=== PATIENT | male | born 1975 | race Caucasian/White ===

== ENCOUNTER 2019-12-02 21:34 | Observation (INO) ==
--- NOTE | 2019-12-02 21:50 | ERNOTE ---
Abdominal HPI - General Chief Complaint: Abdominal Pain Time Seen by Provider: 12/02/19 21:48 Source: patient Exam Limitations: no limitations - Immun/Allergies/Home Medications Immunizatons: IMMUNIZATION HX Immunizations Up to Date Yes History of Influenza Vaccine Yes Hx Pneumococcal Vaccination No Allergies/Adverse Reactions: Allergies amoxicillin Allergy (Verified 11/24/19 20:11) per care facility data codeine Allergy (Verified 11/24/19 20:11) per care facility data latex Allergy (Verified 11/24/19 20:11) per care facility data Penicillins Allergy (Verified 11/24/19 20:11) per care facility data sulfamethoxazole [From Bactrim] Allergy (Verified 11/24/19 20:11) per care facility data trimethoprim [From Bactrim] Allergy (Verified 11/24/19 20:11) per care facility data Home Medications: HOME MEDICATIONS Acetaminophen [Tylenol] 1,000 mg PEG TID 11/14/19 [Last Taken 11/24/19 17:00] Albuterol Sulfate [Albuterol Sulfate 0.63 MG/3ML] 0.63 mg INHALATION BID 11/14/19 [Last Taken Unknown] Budesonide [Pulmicort Respules] 2 ml INHALATION BID 11/14/19 [Last Taken Unknown] Calcium Carbonate/Vitamin D3 [Sm Calcium 500-Vit D3 400 Tab] 1 ea PEG BID 11/14/19 [Last Taken Unknown] Glycopyrrolate 1.5 mg PEG BID 11/14/19 [Last Taken Unknown] Lactose-Reduced Food/Fiber [Jevity 1.5 Sudhakar Liquid] 11/14/19 [Last Taken Unknown] Melatonin 3 mg PEG HS 11/14/19 [Last Taken Unknown] Metoprolol Tartrate [Lopressor] 25 mg PEG BID 11/14/19 [Last Taken Unknown] Miconazole Nitrate 1 appl TOPICAL BID 11/14/19 [Last Taken Unknown] Polyethylene Glycol 3350 [Gavilax] 17 gm PEG DAILY 11/14/19 [Last Taken Unknown] Potassium Bicarbonate/Cit AC [Effer-K 20 Meq Tablet Eff] 60 meq PEG TID 11/14/19 [Last Taken Unknown] Protonix 40 mg PEG DAILY 11/14/19 [Last Taken Unknown] Spironolactone 50 mg PEG DAILY 11/14/19 [Last Taken Unknown] Ziprasidone HCl [Geodon] 20 mg PEG BID 11/14/19 [Last Taken Unknown] - History of Present Illness Narrative: Patient has had recurrent abdominal pain over the past couple of weeks. He has had 2 CAT scans. Initially his PEG tube was partially displaced that was reinserted and was normal and within the stomach on the second CAT scan 10 days later. Today he states he has diffuse abdominal pain mostly in the periumbilical level bilaterally and in the back. He denies any change in bowel habits he denies any diarrhea or constipation. He denies any urinary symptoms. Timing: intermittent Quality: moderate, aching Activities at Onset: none Associated Symptoms: Present: denies symptoms Prior Treatment: Present: recently seen, treated by physician Review of Systems - Review of Systems Constitutional: Absent: recent illness, fever, chills ENT: Absent: nose congestion, nasal drainage Respiratory: Present: cough Cardiology: Absent: chest pain Gastrointestinal/Abdominal: Present: See HPI, abdominal pain. Absent: nausea, vomiting, diarrhea, constipation Genitourinary: Absent: frequency, dysuria Neurological: Absent: headache Endocrine: Absent: excessive sweating Medical History (Last Reviewed 12/03/19 @ 05:20 by Iván Farah DO) Chronic pulmonary aspiration Feeding difficulties Feeding difficulty in adult Hidradenitis suppurativa Hypertension, essential Immune thrombocytopenic purpura Myotonic muscular dystrophy Pain around PEG tube site Presence of externally removable percutaneous endoscopic gastrostomy (PEG) tube Respiratory failure with hypercapnia Schizoaffective disorder, bipolar type Suicidal ideations Tachycardia Tracheostomy in place Ventilator dependence Surgical History: Surgical History (Last Reviewed 12/03/19 @ 05:20 by Iván Farah DO) H/O tracheostomy S/P percutaneous endoscopic gastrostomy (PEG) tube placement Family History: Family History (Last Reviewed 12/03/19 @ 05:20 by Iván Farah DO) Other No pertinent family history Social History: (Last Reviewed 12/03/19 @ 05:20 by Iván Farah DO) Social History: custodial: Yes custodial comment: [facility] Marital status: Single lives independently: No current occupational status: disabled Physical Exam - Physical Exam General Appearance: Present: wd/wn, alert, no apparent distress Head Exam: Present: normal inspection, no evidence of injury Ears, Nose, Throat: Present: dry mucous membranes Neck: Present: nontender Respiratory: Present: chest nontender, lungs clear, other - Tracheostomy site in good condition. Cardiovascular/Chest: Present: regular rate, rhythm, no murmur Gastrointestinal/Abdominal: Present: normal bowel sounds, nondistended, soft, tenderness - Diffuse. Absent: guarding, rebound Back Exam: Present: CVA tenderness (R), CVA tenderness (L) Extremity Exam: Present: normal inspection, no edema Neurological Exam: Present: alert, normal mood/affect Skin Exam: Present: skin rash - Below his abdominal fold. Progress - Results and Orders Patient's Lab Results:: I have reviewed the patient's lab results. Results and Orders: Laboratory Tests 12/02/19 12/02/19 12/03/19 22:13 22:13 04:24 WBC 5.3 Hgb 12.4 L Hct 38.8 L Plt Count 119 L Sodium 141 Potassium 5.0 H Chloride 104 Carbon Dioxide 29.6 BUN 28 H Creatinine 0.95 Random Glucose 102 Calcium 9.6 Total Bilirubin 0.5 AST 18 ALT 35 Alkaline Phosphatase 124 Albumin 3.2 L Amylase 28 Lipase 142 Urine Color Yellow Urine Appearance Clear Urine pH 7.5 Ur Specific [place] <=1.005 Urine Protein Negative Urine Glucose (UA) Negative Urine Ketones Negative Urine Blood Negative Urine Nitrate Negative Urine Bilirubin Negative Urine Urobilinogen Normal Ur Leukocyte Esterase Negative Urine RBC None seen Urine WBC None seen Ur Epithelial Cells 0-5 Urine Bacteria Trace Urine Culture Comments No culture indicated - Vital Signs Patient's Vital Signs:: I have reviewed the patient's vital signs. Vital Signs: Vital Signs 12/02/19 21:36 Temperature 36.3 C Pulse Rate 65 Respiratory Rate 12 Blood Pressure 114/67 O2 Sat by Pulse Oximetry 97 - X-Ray X-Ray #1 X-Ray: abdomen Interpretation: Interp. by me X-ray Comments: Patient has some mild air-fluid levels. No free air. There are some mildly dilated loops of bowel. - CT/Ultrasound CT/Ultrasound Narrative: CT abdomen/pelvis with oral and IV contrast: 8.5 mm dilated appendix could represent early appendicitis. - Progress/Reassessment Chief Complaint: Abdominal Pain Progress:: Improved Progress Note-Subjective: 12/03/19 04:[address] Gross she agrees with observation admission and a dose of Zosyn 12/03/19 04:19 Upon review of the patient's allergies he is allergic to penicillins so antibiotic was changed to Cipro and Flagyl Departure Clinical Impression: Abnormal CT of the abdomen Abdominal pain Qualifiers: Abdominal location: lower abdomen, unspecified Qualified Code(s): R10.30 - Lower abdominal pain, unspecified - Departure Disposition: Still a patient Condition: Good
[2019-12-02 22:16] LABS: Hematocrit 38.8 % (42.0-52.0); Hemoglobin 12.4 gm/dL (13.5-18.0); Mean Cell Volume 98.5 fl (78-100); Mean Corpuscular Hemoglobin 31.5 pg (27-31); Mean Platelet Volume 10.8 fl (8-11.3); Neutrophil # 3.6 K/mm3 (1.3-6.0); Neutrophil % 66.7 % (42-75.0); Platelet Count 119 K/mm3 (150-450); Red Blood Count 3.94 M/mm3 (4.7-6.0); Red Cell Distribution Width 15.1 % (11.5-14.0); White Blood Count 5.3 K/mm3 (4.0-10.5)
[2019-12-02 22:31] LABS: Albumin * 3.2 gm/dl (3.4-5.0); Anion Gap 12.4 mmol/L (6.8-13.8); BUN/Creatinine Ratio 29.5 (9.0-21.6); Bilirubin, Total 0.5 mg/dL (0.0-1.1); Ca. Corrected For Albumin 9.9 mg/dL (8.4-10.2); Calcium * 9.6 mg/dL (7.9-10.9); Carbon Dioxide 29.6 mmol/L (24-32.6); Total Protein 8.1 gm/dL (6.2-8.2)
[2019-12-02] MEDS ORDERED: DIATRIZOATE MEGLUMINE, SODIUM 30 ML BTL PO ONE (22:58)
[2019-12-02] MEDS ORDERED: KETOROLAC TROMETHAMINE 30 MG/ML VIAL IV ONE (23:23)
[2019-12-03] MEDS ORDERED: NORMAL SALINE 1,000 ML IV ONE (03:59)
[2019-12-03 04:30] LABS: Urine Bilirubin Negative (NEGATIVE); Urine Blood Negative /ul (NEGATIVE); Urine Ketone Negative (NEGATIVE); Urine Nitrite Negative (NEGATIVE); Urine Protein Negative (NEGATIVE); Urine Specific Gravity <=1.005 SP.GR. (1.005-1.030); Urine Urobilinogen Normal (NORMAL); Urine pH 7.5 pH (5.0-7.0)
[2019-12-03] MEDS ORDERED: metroNIDAZOLE/SODIUM CHLORIDE 500 MG/100 ML BAG IV SCH (04:30)
[2019-12-03] MEDS ORDERED: CIPROFLOXACIN IN 5 % DEXTROSE 400 MG/200 ML BAG IV SCH (04:30)
[2019-12-03 04:37] LABS: Urine Appearance Clear (CLEAR); Urine Bacteria TRACE; Urine Color Yellow; Urine RBC None Seen /hpf (0-5); Urine WBC None Seen /hpf (0-5)
[2019-12-03] MEDS ORDERED: SENNOSIDES 8.6 MG TABLET PO PRN (08:05)
[2019-12-03] MEDS ORDERED: [UNRECOGNIZED DRUG - OTHER] PEG SCH (08:15)
[2019-12-03] MEDS ORDERED: ENTERAL NUTRITION FORMULA PEG SCH (08:15)
[2019-12-03] MEDS ORDERED: MAGNESIUM CITRATE 300 ML BTL PEG ONE (08:40)
[2019-12-03] MEDS ORDERED: GLYCOPYRROLATE PEG SCH (09:00)
[2019-12-03] MEDS ORDERED: SPIRONOLACTONE 25 MG TABLET PEG SCH (09:00)
[2019-12-03] MEDS: traMADol HCL 50 MG TABLET PO PRN (09:40)
[2019-12-03] MEDS: PANTOPRAZOLE SODIUM 40 MG TABLET.EC PEG SCH (09:41)
[2019-12-03] MEDS: METOPROLOL TARTRATE 25 MG TABLET PEG SCH ×2 (09:41→20:40)
[2019-12-03] MEDS: MICONAZOLE NITRATE 30 APPL TUBE TP SCH ×2 (09:41→20:41)
[2019-12-03] MEDS: ZIPRASIDONE HCL 20 MG CAPSULE PEG SCH ×2 (09:41→20:40)
[2019-12-03] MEDS: CALCIUM CARBONATE/VITAMIN D3 1 TAB TABLET PEG SCH ×2 (09:41→20:40)
[2019-12-03] MEDS: POLYETHYLENE GLYCOL 3350 17 GM PACKET PO SCH (09:41)
[2019-12-03] MEDS: ACETAMINOPHEN 500 MG TABLET PEG SCH ×3 (09:42→16:56)
[2019-12-03] MEDS: ALBUTEROL SULFATE 2.5 MG/0.5 ML VIAL.NEB IH SCH ×3 (09:44→19:54)
[2019-12-03] MEDS: BUDESONIDE 0.25 MG/2 ML VIAL.NEB IH SCH ×2 (09:46→19:54)
--- NOTE | 2019-12-03 11:51 | HP ---
Chief Complaint - Chief Complaint Date of Service: 12/03/19 Time of Service: 11:44 Chief Complaint: abd pain History of Present Illness: Italo is a pleasant 44-year-old gentleman who was admitted through the emergency room last night. I was told that the CT scan said he had an early appendicitis. Upon reviewing the CT scan I do not see an early appendicitis and the report does not mention acute appendicitis. He has been having lower abdominal pain for the last 3 weeks. He has tube feedings. He has been tolerating these normally. He has mild nausea which is normal with his tube feedings. He has not had vomiting. He states his bowels are working normally and he has been going 1-2 times a day. His last bowel movement was this morning. The pain is across the lower portion of the abdomen. He does not have a primary care provid er. He states it has been a long time since he has seen a primary care provider. Medical History (Last Reviewed 12/03/19 @ 05:20 by Iván Farah DO) Chronic pulmonary aspiration Feeding difficulties Feeding difficulty in adult Hidradenitis suppurativa Hypertension, essential Immune thrombocytopenic purpura Myotonic muscular dystrophy Pain around PEG tube site Presence of externally removable percutaneous endoscopic gastrostomy (PEG) tube Respiratory failure with hypercapnia Schizoaffective disorder, bipolar type Suicidal ideations Tachycardia Tracheostomy in place Ventilator dependence Surgical History: Surgical History (Last Reviewed 12/03/19 @ 05:20 by Iván Farah DO) H/O tracheostomy S/P percutaneous endoscopic gastrostomy (PEG) tube placement Family History: Family History (Last Reviewed 12/03/19 @ 05:20 by Iván Farah DO) Other No pertinent family history Social History: (Last Reviewed 12/03/19 @ 05:20 by Iván Farah DO) Social History: detention: Yes detention comment: [facility] Marital status: Single lives independently: No current occupational status: disabled Review Of Systems (GEN) - Review of Systems Generalized/Overall Review: Present: Weakness EENTM: Present: No Symptoms Reported Respiratory: Present: No Symptoms Reported Cardiac: Present: No Symptoms Reported Abdominal: Present: Abdominal Pain Genitourinary: Present: No Symptoms Reported Musculoskeletal: Present: Other - Muscular dystrophy Neurological: Present: Other - Muscular dystrophy Endocrine: Present: No Symptoms Reported Immunizations: IMMUNIZATION HX Immunizations Up to Date Yes History of Influenza Vaccine Yes Hx Pneumococcal Vaccination No Allergies/Adverse Reactions: Allergies Allergy/AdvReac Type Severity Reaction Status Date / Time amoxicillin Allergy Verified 11/24/19 20:11 codeine Allergy Hives Verified 12/03/19 08:48 latex Allergy Verified 11/24/19 20:11 Penicillins Allergy Verified 11/24/19 20:11 sulfamethoxazole Allergy Verified 11/24/19 20:11 [From Bactrim] trimethoprim [From Bactrim] Allergy Verified 11/24/19 20:11 Home Medications: HOME MEDICATIONS Acetaminophen [Tylenol] 1,000 mg PEG TID 11/14/19 [Last Taken 11/24/19 17:00] Albuterol Sulfate [Albuterol Sulfate 0.63 MG/3ML] 0.63 mg INHALATION BID 11/14/19 [Last Taken Unknown] Budesonide [Pulmicort Respules] 2 ml INHALATION BID 11/14/19 [Last Taken Unknown] Calcium Carbonate/Vitamin D3 [Sm Calcium 500-Vit D3 400 Tab] 1 ea PEG BID 11/14/19 [Last Taken Unknown] Glycopyrrolate 1.5 mg PEG BID 11/14/19 [Last Taken Unknown] Lactose-Reduced Food/Fiber [Jevity 1.5 Sudhakar Liquid] 11/14/19 [Last Taken Unknown] Melatonin 3 mg PEG HS 11/14/19 [Last Taken Unknown] Metoprolol Tartrate [Lopressor] 25 mg PEG BID 11/14/19 [Last Taken Unknown] Miconazole Nitrate 1 appl TOPICAL BID 11/14/19 [Last Taken Unknown] Polyethylene Glycol 3350 [Gavilax] 17 gm PEG DAILY 11/14/19 [Last Taken Unknown] Potassium Bicarbonate/Cit AC [Effer-K 20 Meq Tablet Eff] 60 meq PEG TID 11/14/19 [Last Taken Unknown] Protonix 40 mg PEG DAILY 11/14/19 [Last Taken Unknown] Spironolactone 50 mg PEG DAILY 11/14/19 [Last Taken Unknown] Ziprasidone HCl [Geodon] 20 mg PEG BID 11/14/19 [Last Taken Unknown] Sennosides [Senna] 8.6 mg PO DAILY PRN 12/03/19 [Last Taken Unknown] traMADol HCL [Tramadol HCl] 50 mg PO Q6H PRN 12/03/19 [Last Taken Unknown] Exam - Exam Vital Signs: Vital Signs - Last Taken Temp 36.4 C 12/03/19 10:50 Pulse 83 12/03/19 10:50 Resp 17 12/03/19 10:50 BP 115/72 12/03/19 10:50 Pulse Ox 98 12/03/19 10:50 Constitutional: Present: Alert, Oriented x3, Cooperative ENT Exam: Present: hearing grossly normal Eye Exam: bilateral eye: normal inspection Neck: Present: other - Trach in place Breasts: Present: Exam deferred Respiratory: Present: crackles Cardiovascular/Chest: Present: regular rate, rhythm Abdomen: Present: soft, nondistended, tender - Mild tenderness to palpation in the lower abdomen /Rectal: Present: Exam deferred Extremity: Present: other - Muscular dystrophy Skin Exam: Present: normal color Neurologic: Present: normal mood/affect Appearance: Present: appropriate appearance Eye contact: Present: cooperative, good eye contact Thoughts: Present: normal thought pattern Diagnostic Studies: Abnormal Lab Results 12/02/19 12/02/19 Range/Units 22:13 22:13 RBC 3.94 L (4.7-6.0) M/mm3 Hgb 12.4 L (13.5-18.0) gm/dL Hct 38.8 L (42.0-52.0) % MCH 31.5 H (27-31) pg RDW 15.1 H (11.5-14.0) % Plt Count 119 L (150-450) K/mm3 Monocytes % 10.4 H (0.0-9) % Lymphocytes # 1.07 L (1.5-3.5) k/mm3 Potassium 5.0 H (3.4-4.6) mmol/L BUN 28 H (6-23) mg/dL BUN/Creatinine Ratio 29.5 H (9.0-21.6) Albumin 3.2 L (3.4-5.0) gm/dl Laboratory Results WBC 5.3 K/mm3 (4.0-10.5) 12/02/19 22:13 RBC 3.94 M/mm3 (4.7-6.0) L 12/02/19 22:13 Hgb 12.4 gm/dL (13.5-18.0) L 12/02/19 22:13 Hct 38.8 % (42.0-52.0) L 12/02/19 22:13 MCV 98.5 fl (78-100) 12/02/19 22:13 MCH 31.5 pg (27-31) H 12/02/19 22:13 MCHC 32.0 g/dl (32-36) 12/02/19 22:13 RDW 15.1 % (11.5-14.0) H 12/02/19 22:13 Plt Count 119 K/mm3 (150-450) L 12/02/19 22:13 MPV 10.8 fl (8-11.3) 12/02/19 22:13 Immature Gran % (Auto) 0.20 % (0.001-0.429) 12/02/19 22:13 Immature Gran # (Auto) 0.01 K/mm3 (0.000-0.0310) 12/02/19 22:13 Neutrophils % 66.7 % (42-75.0) 12/02/19 22:13 Lymphocytes % 20.2 % (20-51) 12/02/19 22:13 Monocytes % 10.4 % (0.0-9) H 12/02/19 22:13 Eosinophils % 2.3 % (0.0-3.0) 12/02/19 22:13 Basophils % 0.2 % (0.0-1.0) 12/02/19 22:13 Nucleated RBC % 0.0 k/mm3 (0-1) 12/02/19 22:13 Neutrophils # 3.6 K/mm3 (1.3-6.0) 12/02/19 22:13 Lymphocytes # 1.07 k/mm3 (1.5-3.5) L 12/02/19 22:13 Monocytes # 0.6 k/mm3 (0.0-1.0) 12/02/19 22:13 Eosinophils # 0.1 k/mm3 (0.0-0.7) 12/02/19 22:13 Absolute Basophils 0.0 k/mm3 (0.0-0.1) 12/02/19 22:13 Sodium 141 mmol/L (132-142) 12/02/19 22:13 Plasma Sodium 141 mmol/L (130-142) 12/02/19 22:13 Potassium 5.0 mmol/L (3.4-4.6) H 12/02/19 22:13 Chloride 104 mmol/L (97-106) 12/02/19 22:13 Carbon Dioxide 29.6 mmol/L (24-32.6) 12/02/19 22:13 Anion Gap 12.4 mmol/L (6.8-13.8) 12/02/19 22:13 BUN 28 mg/dL (6-23) H 12/02/19 22:13 Creatinine 0.95 mg/dL (0.4-1.4) 12/02/19 22:13 Est GFR (Non-Af Amer) 91 mL/min (60-130) 12/02/19 22:13 BUN/Creatinine Ratio 29.5 (9.0-21.6) H 12/02/19 22:13 Random Glucose 102 mg/dL (70-110) 12/02/19 22:13 Calcium 9.6 mg/dL (7.9-10.9) 12/02/19 22:13 Calcium Adj for Albumin 9.9 mg/dL (8.4-10.2) 12/02/19 22:13 Total Bilirubin 0.5 mg/dL (0.0-1.1) 12/02/19 22:13 AST 18 U/L (0-48) 12/02/19 22:13 ALT 35 U/L (19-67) 12/02/19 22:13 Alkaline Phosphatase 124 U/L (50-170) 12/02/19 22:13 Total Protein 8.1 gm/dL (6.2-8.2) 12/02/19 22:13 Albumin 3.2 gm/dl (3.4-5.0) L 12/02/19 22:13 Amylase 28 U/L (25-115) 12/02/19 22:13 Lipase 142 U/L (73-393) 12/02/19 22:13 Urine Color Yellow 12/03/19 04:24 Urine Appearance Clear (CLEAR) 12/03/19 04:24 Urine pH 7.5 pH (5.0-7.0) 12/03/19 04:24 Ur Specific [place] <=1.005 SP.GR. (1.005-1.030) 12/03/19 04:24 Urine Protein Negative mg/dL (NEGATIVE) 12/03/19 04:24 Urine Glucose (UA) Negative mg/dL (NEGATIVE) 12/03/19 04:24 Urine Ketones Negative mg/dL (NEGATIVE) 12/03/19 04:24 Urine Blood Negative /ul (NEGATIVE) 12/03/19 04:24 Urine Nitrate Negative (NEGATIVE) 12/03/19 04:24 Urine Bilirubin Negative mg/dl (NEGATIVE) 12/03/19 04:24 Urine Urobilinogen Normal EU/dl (NORMAL) 12/03/19 04:24 Ur Leukocyte Esterase Negative /ul (NEGATIVE) 12/03/19 04:24 Urine RBC None seen /hpf (0-5) 12/03/19 04:24 Urine WBC None seen /hpf (0-5) 12/03/19 04:24 Ur Epithelial Cells 0-5 /hpf (0-5) 12/03/19 04:24 Urine Bacteria Trace (NONE) 12/03/19 04:24 Urine Culture Comments No culture indicated 12/03/19 04:24 Assessment/Plan - Narrative Narrative: His white count is normal. I personally reviewed his CT scan I do not see acute appendicitis. The CT report does not mention acute appendicitis. His pain is bilateral. Pain is been going on for 3 weeks. If he had acute appendicitis his white count would be elevated by now and he would likely have ruptured. I see a moderate amount of retained stool on the CT scan. I will start with a bottle of magnesium citrate and continue his MiraLAX. I plan to consult primary care for their input, and he has not seen primary care for a significant period of time. No acute surgical issues at this time. - Assessment/Plan (1) Abdominal pain Problem: Acute Qualifiers: Abdominal location: lower abdomen, unspecified Qualified Code(s): R10.30 - Lower abdominal pain, unspecified (2) Muscular dystrophy Problem: Acute (3) Muscle weakness (generalized) Problem: Acute (4) Gastrostomy in place Problem: Acute (5) Tracheostomy in place Problem: Acute (6) Supplemental oxygen dependent Problem: Acute
--- NOTE | 2019-12-03 16:33 | CONS ---
[facility] - General Date of Service: 12/03/19 Narrative: Italo Champagne is a 44-year-old white male, patient of Dr. Amira Hayden, resident of the [facility], who was admitted on 12/03/2019 for abdominal pain. I am being consulted for management of his medical problems. His past medical history is significant for myotonic muscular dystrophy status post tracheostomy for oxygen supplementation, history of ventilator dependence, schizoaffective disorder of bipolar type , hypertension, feeding difficulties, idiopathic thrombocytopenic purpura, chronic pulmonary aspirations. Dr. Johnson does not feel he has beginning acute appendicitis and has given him magnesium citrate. He made a large bowel movement after this magnesium citrate but he still rates his abdominal pain as 7/10. His CT scan shows no acute intra-abdominal findings. His CMP showed normal liver function tests except for an albumin of 3.2, and a potassium of 5. His amylase, lipase were normal. His CBC showed normal white blood cell count, hemoglobin of 12.4, MCV of 98. His urinalysis was normal. Source: patient - History of Present Illness Allergies/Adverse Reactions: Allergies amoxicillin Allergy (Verified 11/24/19 20:11) per care facility data codeine Allergy (Verified 12/03/19 08:48) Hives per care facility data latex Allergy (Verified 11/24/19 20:11) per care facility data Penicillins Allergy (Verified 11/24/19 20:11) per care facility data sulfamethoxazole [From Bactrim] Allergy (Verified 11/24/19 20:11) per care facility data trimethoprim [From Bactrim] Allergy (Verified 11/24/19 20:11) per care facility data Home Medications: Home Medications Medication Instructions Recorded Last Taken Acetaminophen [Tylenol] 1,000 mg PEG TID 11/14/19 11/24/19 17:00 Albuterol Sulfate [Albuterol 0.63 mg INHALATION BID 11/14/19 Unknown Sulfate 0.63 MG/3ML] Budesonide [Pulmicort Respules] 2 ml INHALATION BID 11/14/19 Unknown Calcium Carbonate/Vitamin D3 [Sm 1 ea PEG BID 11/14/19 Unknown Calcium 500-Vit D3 400 Tab] Glycopyrrolate 1.5 mg PEG BID 11/14/19 Unknown Lactose-Reduced Food/Fiber [Jevity 11/14/19 Unknown 1.5 Sudhakar Liquid] Melatonin 3 mg PEG HS 11/14/19 Unknown Metoprolol Tartrate [Lopressor] 25 mg PEG BID 11/14/19 Unknown Miconazole Nitrate 1 appl TOPICAL BID 11/14/19 Unknown Polyethylene Glycol 3350 [Gavilax] 17 gm PEG DAILY 11/14/19 Unknown Potassium Bicarbonate/Cit AC 60 meq PEG TID 11/14/19 Unknown [Effer-K 20 Meq Tablet Eff] Protonix 40 mg PEG DAILY 11/14/19 Unknown Spironolactone 50 mg PEG DAILY 11/14/19 Unknown Ziprasidone HCl [Geodon] 20 mg PEG BID 11/14/19 Unknown Sennosides [Senna] 8.6 mg PO DAILY PRN 12/03/19 Unknown traMADol HCL [Tramadol HCl] 50 mg PO Q6H PRN 12/03/19 Unknown Medications - Medications Current Medications: Current Medications Acetaminophen (Tylenol) 1,000 mg PEG TID [facility] Stop: 01/02/20 09:01 Last Admin: 12/03/19 14:04 Dose: 1,000 mg Documented by: Albuterol Sulfate (Albuterol Sulfate 2.5 Mg/0.5ml) 0.63 mg IH BIDRT [facility] Stop: 01/02/20 09:01 Last Admin: 12/03/19 09:44 Dose: 2.5 mg Documented by: Budesonide (Pulmicort Respules) 0.25 mg IH BIDRT [facility] Stop: 01/02/20 09:01 Last Admin: 12/03/19 09:46 Dose: 0.25 mg Documented by: Calcium/Vitamin D (Calcarb 600 With Vitamin D) 1 tab PEG BID [facility] Stop: 01/02/20 09:01 Last Admin: 12/03/19 09:41 Dose: 1 tab Documented by: Metoprolol Tartrate (Lopressor) 25 mg PEG BID [facility] Stop: 01/02/20 09:01 Last Admin: 12/03/19 09:41 Dose: 25 mg Documented by: Miconazole Nitrate (Miconazole Nitrate) 1 appl TP BID [facility] Stop: 01/02/20 09:01 Last Admin: 12/03/19 09:41 Dose: 1 appl Documented by: Pantoprazole Sodium (Protonix) 40 mg PEG DAILY [facility] Stop: 01/02/20 09:01 Last Admin: 12/03/19 09:41 Dose: 40 mg Documented by: Polyethylene Glycol (Miralax) 17 gm PO DAILY [facility] Stop: 01/02/20 09:01 Last Admin: 12/03/19 09:41 Dose: 17 gm Documented by: Spironolactone (Aldactone) 50 mg PEG DAILY [facility] Stop: 01/02/20 09:01 Last Admin: 12/03/19 09:41 Dose: 50 mg Documented by: Tramadol HCl (Ultram) 50 mg PO Q6H PRN PRN Reason: Pain Stop: 01/02/20 08:06 Last Admin: 12/03/19 09:40 Dose: 50 mg Documented by: Ziprasidone (Geodon) 20 mg PEG BID [facility] Stop: 01/02/20 09:01 Last Admin: 12/03/19 09:41 Dose: 20 mg Documented by: Review of Systems - Review of Systems Generalized/Overall Review: Absent: Weakness, Chills, Fever EENTM: Absent: Blurred Vision Respiratory: Absent: Cough, Shortness of Breath, Orthopnea Cardiac: Absent: Chest Pain, Edema, Palpitations Abdominal: Present: Abdominal Pain. Absent: Nausea, Vomiting, Hematemesis, Melena, Bright blood from rectum Genitourinary: Absent: Urgency, Frequency Musculoskeletal: Absent: Joint Pain Neurological: Absent: Headache Skin: Absent: Lesions, Rash Physical Examination - Exam Vital Signs: Vital Signs - Last Taken Temp 36.6 C 12/03/19 14:08 Pulse 71 12/03/19 14:08 Resp 17 12/03/19 14:08 BP 120/68 12/03/19 14:08 Pulse Ox 97 12/03/19 14:08 O2 Oxygen Delivery Method Trach Collar Constitutional: Present: Alert, Oriented x3, Cooperative ENT Exam: Present: hearing grossly normal Eye Exam: bilateral eye: normal inspection, PERRL, EOMI Neck: Present: limited range of motion. Absent: lymphadenopathy (R), lymphadenopathy (L) Respiratory: Present: decreased breath sounds, No rales, No wheezing Cardiovascular/Chest: Present: regular rate, rhythm, no JVD, no murmur Abdomen: Present: Normal bowel sounds, soft, obese, tender Extremity: Present: no pedal edema, no calf tenderness - Results and Findings: Narrative: Italo is a 44-year-old white male who was admitted for abdominal pain. I am being consulted for management of his medical problems. His primary care physician is Dr. Amira Hayden and he says she saw her last November when she made her medical rounds in the longterm. She is in charge of the ventilated patients in the longterm. We will continue with his current medications and present management. His abdominal pain is of unknown etiology although muscular dystrophy can have GIT signs and symptoms from constipation, dysphagia, and even pseudoobstruction, or irritable bowel syndrome. If this abdominal pain is due to muscle pain, muscular dystrophy usually involves the proximal limb muscles rather than abdominal muscles but guess there could always be ab exception.. If this is due to myotonia, this usually involves the intrinsic muscles of the hands, jaw, and face. He has mild hyperkalemia which is likely due to spironolactone but is unlikely the cause of abdominal visceral pain or from somatic pain. Lab/Microbiology results last 24 hrs: Abnormal/Pending Laboratory Last 24 HRS 12/02/19 12/02/19 22:13 22:13 RBC 3.94 L Hgb 12.4 L Hct 38.8 L MCH 31.5 H RDW 15.1 H Plt Count 119 L Monocytes % 10.4 H Lymphocytes # 1.07 L Potassium 5.0 H BUN 28 H BUN/Creatinine Ratio 29.5 H Albumin 3.2 L - Assessments/Findings (1) Abdominal pain Problem: Acute Qualifiers: Abdominal location: lower abdomen, unspecified Qualified Code(s): R10.30 - Lower abdominal pain, unspecified (2) Muscular dystrophy Problem: Acute (3) Gastrostomy in place Problem: Acute (4) Tracheostomy in place Problem: Acute (5) Supplemental oxygen dependent Problem: Acute (6) Hypertension Problem: Acute (7) Hyperkalemia Problem: Acute
[2019-12-03] MEDS ORDERED: DEXTROSE 5%-0.5 NORMAL SALINE 1,000 ML IV PRN (17:03)
[2019-12-03] MEDS ORDERED: MELATONIN 3,000 MCG TABLET PEG SCH (21:00)
[2019-12-04] MEDS: ALBUTEROL SULFATE 2.5 MG/0.5 ML VIAL.NEB IH SCH ×2 (06:16→06:18)
[2019-12-04] MEDS: BUDESONIDE 0.25 MG/2 ML VIAL.NEB IH SCH (06:17)
[2019-12-04] MEDS: traMADol HCL 50 MG TABLET PO PRN (08:18)
--- NOTE | 2019-12-04 09:19 | DS ---
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 [facility] report said he had possible appendicitis. The final report showed no appendicitis. He continues to have bilateral lower abdominal pain. It is slightly improved today compared to yesterday. He was given magnesium citrate yesterday. I appreciate Dr. Guillaume's help in his care. I plan to discharge him back to the [facility] and have him see gastroenterology as an outpatient. Procedures Performed: none Results and Findings: Lab Pending Results 12/02/19 22:13: WBC 5.3, RBC 3.94 L, Hgb 12.4 L, Hct 38.8 L, MCV 98.5, MCH 31.5 H, MCHC 32.0, RDW 15.1 H, Plt Count 119 L, MPV 10.8, Immature Gran % (Auto) 0.20, Immature Gran # (Auto) 0.01, Neutrophils % 66.7, Lymphocytes % 20.2, Monocytes % 10.4 H, Eosinophils % 2.3, Basophils % 0.2, Nucleated RBC % 0.0, Neutrophils # 3.6, Lymphocytes # 1.07 L, Monocytes # 0.6, Eosinophils # 0.1, Absolute Basophils 0.0 12/02/19 22:13: Sodium 141, Plasma Sodium 141, Potassium 5.0 H, Chloride 104, Carbon Dioxide 29.6, Anion Gap 12.4, BUN 28 H, Creatinine 0.95, Est GFR (Non-Af Amer) 91, BUN/Creatinine Ratio 29.5 H, Random Glucose 102, Calcium 9.6, Calcium Adj for Albumin 9.9, Total Bilirubin 0.5, AST 18, ALT 35, Alkaline Phosphatase 124, Total Protein 8.1, Albumin 3.2 L, Amylase 28, Lipase 142 12/03/19 04:24: Urine Color Yellow, Urine Appearance Clear, Urine pH 7.5, Ur Specific [place] <=1.005, Urine Protein Negative, Urine Glucose (UA) Negative, Urine Ketones Negative, Urine Blood Negative, Urine Nitrate Negative, Urine Bilirubin Negative, Urine Urobilinogen Normal, Ur Leukocyte Esterase Negative, Urine RBC None seen, Urine WBC None seen, Ur Epithelial Cells 0-5, Urine Bacteria Trace, Urine Culture Comments No culture indicated Discharge Location: [facility] Disposition: Home self-care Condition: Good Discharge Activity: Activity as tolerated Discharge Diet: Tube Feedings Referrals: Amira Hayden DO [Primary Care Provider] - Complete Home Medications List: Complete Home Medication List: Acetaminophen [Tylenol] 1,000 mg PEG TID 11/14/19 Albuterol Sulfate [Albuterol Sulfate 0.63 MG/3ML] 0.63 mg INHALATION BID 11/14/19 Budesonide [Pulmicort Respules] 2 ml INHALATION BID 11/14/19 Calcium Carbonate/Vitamin D3 [Sm Calcium 500-Vit D3 400 Tab] 1 ea PEG BID 11/14/19 Glycopyrrolate 1.5 mg PEG BID 11/14/19 Lactose-Reduced Food/Fiber [Jevity 1.5 Sudhakar Liquid] 11/14/19 Melatonin 3 mg PEG HS 11/14/19 Metoprolol Tartrate [Lopressor] 25 mg PEG BID 11/14/19 Miconazole Nitrate 1 appl TOPICAL BID 11/14/19 Polyethylene Glycol 3350 [Gavilax] 17 gm PEG DAILY 11/14/19 Potassium Bicarbonate/Cit AC [Effer-K 20 Meq Tablet Eff] 60 meq PEG TID 11/14/19 Protonix 40 mg PEG DAILY 11/14/19 Spironolactone 50 mg PEG DAILY 11/14/19 Ziprasidone HCl [Geodon] 20 mg PEG BID 11/14/19 Sennosides [Senna] 8.6 mg PO DAILY PRN 12/03/19 traMADol HCL [Tramadol HCl] 50 mg PO Q6H PRN 12/03/19 Acetaminophen [Tylenol] 1,000 mg PEG TID tab 12/04/19 Albuterol Sulfate [Albuterol Sulfate 2.5 MG/0.5ML] 0.63 mg INHALATION BIDRT vial.neb 12/04/19 Albuterol Sulfate [Albuterol Sulfate 2.5 MG/0.5ML] 2.5 mg INHALATION BIDRT vial.neb 12/04/19 Budesonide [Pulmicort Respules] 0.25 mg INHALATION BIDRT vial.neb 12/04/19 Calcium Carbonate/Vitamin D3 [Calcarb 600 With Vitamin D] 1 tab PEG BID tab 12/04/19 Glycopyrrolate 1.5 mg PEG BID 12/04/19 Metoprolol Tartrate [Lopressor] 25 mg PEG BID tab 12/04/19 Miconazole Nitrate 1 appl TOPICAL BID tube 12/04/19 Pantoprazole Sodium [Protonix] 40 mg PEG DAILY tablet. 12/04/19 Polyethylene Glycol 3350 [Miralax] 17 gm PO DAILY packet 12/04/19 Sennosides [Senokot] 8.6 mg PO DAILY PRN tab 12/04/19 Spironolactone [Aldactone] 50 mg PEG DAILY tab 12/04/19 Ziprasidone HCl [Geodon] 20 mg PEG BID cap 12/04/19 traMADol HCL [Ultram] 50 mg PO Q6H PRN tab 12/04/19
[2019-12-04] MEDS: CALCIUM CARBONATE/VITAMIN D3 1 TAB TABLET PEG SCH (10:08)
[2019-12-04] MEDS: POLYETHYLENE GLYCOL 3350 17 GM PACKET PO SCH (10:08)
[2019-12-04] MEDS: ZIPRASIDONE HCL 20 MG CAPSULE PEG SCH (10:08)
[2019-12-04] MEDS: METOPROLOL TARTRATE 25 MG TABLET PEG SCH (10:09)
[2019-12-04] MEDS: PANTOPRAZOLE SODIUM 40 MG TABLET.EC PEG SCH (10:09)
[2019-12-04] MEDS: ACETAMINOPHEN 500 MG TABLET PEG SCH ×2 (10:14→12:41)
[2019-12-04] MEDS: MICONAZOLE NITRATE 30 APPL TUBE TP SCH (10:16)
[2019-12-04 12:40] VITALS: BP 102/60
== END 2019-12-04 13:00 ==
LOC: MS 21:34 → ER 21:34 → MS 12-03 05:18
PROVIDERS: ADMIT Surgery; ATTEND Surgery
CPT/HCPCS: 36415; 74019; 74020; 74177; 80053; 81001; 82150; 83690; 85025; 87081; 94640; 94664; 96365; 96366; 96375; 99285; G0378; Q9963; Q9967